=== PATIENT | female | born 1990 | race African-American/Black ===

== ENCOUNTER 2017-04-21 14:00 | Inpatient (IN) | payer MEDICAID ==
[~2017-04-21] VITALS: Ht 167.6 cm; Wt 133.8 kg
--- NOTE | ~2017-04-21 | PN ---
Unit #: [id number] #: [id number] Patient: JANNY SALDIVAR [id number] [facility] [address] [place] [address] [id number] MR#: [id number] NAME: JANNY SALDIVAR ROOM: [facility] Age: 26 Sex: F Admission Date: 04/21/2017 : 1990 Attending Physician: Donnie Remy M.D. Admitting Physician: Donnie Remy M.D. Primary Care Physician: Generic Doctor Not In System [facility] PROGRESS NOTES DATE 04/23/2017 DISCUSSION Janny has decreased detox symptoms today. Her mood is improving with a brighter range of affect. She is alert and fully oriented with no evidence of psychosis, confusion or disorientation. She denies active suicidal ideations today. ASSESSMENT Alcohol dependence. PLAN Continue current treatment plan. Dictated by... Chidi De La Cruz/reno TD: 04/28/2017 00:57 JOB #: [id number] [facility] PROGRESS NOTES Page 1 of 1 X Donnie Remy MD PROGRESS NOTE
--- NOTE | ~2017-04-21 | DS ---
Unit #: [id number] #: [id number] Patient: JANNY SALDIVAR [id number] [place] [address] [id number] MR#: [id number] NAME: JANNY SALDIVAR ROOM: [facility] Age: 26 Sex: F Admission Date: 04/21/2017 : 1990 Discharge Date: 04/24/2017 Attending Physician: Donnie Remy M.D. Primary Care Physician: Generic Doctor Not In System DISCHARGE SUMMARY REASON FOR ADMISSION Janny is a 26-year-old woman, who reports difficulty maintaining sobriety after increasing use of alcohol. She drinks about a fifth of whiskey daily. She was unable to contract for safety and was admitted for stabilization. DIAGNOSTIC STUDIES Laboratory data, please see hospital chart. HOSPITAL COURSE The patient was admitted and placed on the alcohol detox protocol. Her home medications were restarted but she declined initiation of an antidepressant medication. Her withdrawal symptoms were significant for the first forty hours of her hospitalization but gradually improved. She did not show any evidence of disorientation, confusion, or delirium and on the day of discharge, she had a good mood, bright affect, and no further suicidal ideation, intent, or plan. DISCHARGE DIAGNOSES [place] I Alcohol dependence, withdraw, uncomplicated. [place] II No diagnosis. [place] III Hypertension. Asthma. Diabetes. Obesity. [place] IV [place] V INSTRUCTIONS TO PATIENT Follow up with chemical dependence programming, community mental health resources. DISCHARGE MEDICATIONS No prescriptions were provided. The patient will continue on Lopressor 50 mg twice daily for hypertension, hydrochlorothiazide 25 mg daily for hypertension, and Proventil inhaler 1 to 2 puffs every four hours for shortness of breath. CONDITION AT DISCHARGE Fair. PROGNOSIS Unit #: [id number] #: [id number] Patient: JANNY SALDIVAR [id number]. DIET AND ACTIVITY Ad felipe. Dictated by... Donnie Remy M.D. AIDEN/ashley TD: 04/28/2017 10:13 JOB #: [id number] DISCHARGE SUMMARY Page 1 of 1 X Donnie Remy MD X DISCHARGE SUMMARY
--- NOTE | ~2017-04-21 | CO ---
Unit #: [id number] #: [id number] Patient: JANNY SALDIVAR [id number] [facility] [address] [place] [address] [id number] MR#: [id number] NAME: JANNY SALDIVAR ROOM: [facility] Age: 26 Sex: F Admission Date: 04/21/2017 : 1990 Attending Physician: Donnie Remy M.D. Primary Care Physician: Generic Doctor Not In System Consultation Date: 04/22/2017 CONSULTATION REPORT Ordering provider is Dr. Remy. REASON FOR CONSULTATION High blood pressure. SUBJECTIVE The patient reports that she takes 75 mg of metoprolol b.i.d., but has been out of it for several months. This had been controlling her blood pressure well. She also complains of wheezing in all lung wolf due to her asthma and is requesting an inhaler. OBJECTIVE Heart with regular rate and rhythm. Wheezing was noted in all lung wolf. The remainder of her examination is unremarkable. Blood pressure on admission was 172/104. ASSESSMENT 1. High blood pressure. 2. Asthma. PLAN The PA who was on for yesterday had already ordered blood pressure medications. We will continue her on those. I also ordered a Ventolin inhaler for her. We will continue to monitor. Dictated by... Agustin Hoskins/devin TD: 04/22/2017 16:31 JOB #: [id number] Unit #: [id number] #: [id number] Patient: JANNY SALDIVAR CONSULTATION REPORT Page 1 of 1 X SUSHIL ROBERTO APRN CONSULTATION REPORT
--- NOTE | ~2017-04-21 | HP ---
Unit #: [id number] #: [id number] Patient: JANNY SLADIVAR [id number] [place] [address] [id number] MR#: [id number] NAME: JANNY SALDIVAR ROOM: 76 Age: 26 Sex: F Admission Date: 04/21/2017 : 1990 Attending Physician: Donnie Remy M.D. Admitting Physician: Donnie Remy M.D. Primary Care Physician: Generic Doctor Not In System HISTORY AND PHYSICAL HISTORY OF PRESENT ILLNESS The patient is a 26-year-old female admitted to [facility] on 04/21/2017 to detox from alcohol. PAST MEDICAL HISTORY 1. Obesity. 2. Hypertension. 3. Withdrawal seizures. 4. Asthma. PAST SURGICAL HISTORY 1. Arm surgery. 2. Dental. SOCIAL HISTORY She is unemployed. She lives with parents. She smokes 1 pack of cigarettes daily and drinks fifth of whiskey per day. FAMILY MEDICAL HISTORY Noncontributory. ALLERGIES No known drug allergies. CURRENT MEDICATIONS The patient is not on any home medications. REVIEW OF SYSTEMS CONSTITUTIONAL: No fever or chills. HEENT: Denies any sore throat, ear pain or runny nose. CARDIOVASCULAR: Denies chest pain, irregular heart rhythm or palpitations. CHEST: Denies shortness of breath or cough. No hemoptysis. GASTROINTESTINAL: Denies nausea, vomiting, diarrhea or chronic constipation. ENDOCRINE: Denies history of increased thirst or urination. No recent significant weight loss or gain. GENITOURINARY: Denies dysuria, frequency, or hematuria. SKIN: Denies any rashes. HEMATOLOGIC: Denies history of increased bleeding or bruising. MUSCULOSKELETAL: Denies any hot, swollen joints. No generalized muscle pain. NEUROLOGIC: Denies problems with vision or speech. No frequent, severe headaches. No numbness, tingling or weakness in any extremities. Denies Unit #: [id number] #: [id number] Patient: JANNY SALDIVAR loss of bladder or bowel control. PHYSICAL EXAMINATION GENERAL: She is awake, alert, and oriented in no acute distress. VITAL SIGNS: Temperature 98.5, heart rate 124, respirations 18, blood pressure 172/104. HEIGHT: 5 feet 6. WEIGHT: 295 pounds. SKIN: Warm and dry without rash or lesion. HEENT: Normocephalic. TMs not viewed. Oral and nasal passages clear. Conjunctivae clear. PERRLA. EOMs intact. NECK: Supple without lymphadenopathy or thyromegaly. HEART: Regular rate and rhythm without murmur. LUNGS: No wheezing in all lung wolf. ABDOMEN: Soft, nontender. : Not done. EXTREMITIES: No evidence of cyanosis, clubbing or edema. Moves all without focal deficit. NEUROLOGICAL: Grossly within normal limits. Cranial Nerves: II: Visual wolf are intact. III, IV AND : Extraocular movements are intact. Pupils are equal, round and reactive to light. V: Facial sensation is grossly normal. VII: Facial movements and expression are normal. VIII: Auditory acuity grossly intact. IX, X: Uvula is midline. Phonation is normal. XI: Patient shrugs shoulders and turns head normally. XII: Tongue protrudes in the midline. Sensory and Motor Function: Sensory and motor sensation is grossly normal. Motor: moves all extremities well. IMPRESSION 1. Psychiatric admission. 2. Alcohol abuse. 3. Obesity. 4. Hypertension. 5. Withdrawal seizures. 6. Asthma. 7. Nicotine dependence. RECOMMENDATIONS PSYCHIATRIC: Per psychiatrist. MEDICAL: No contraindication to participate in this facility activities. MEDICAL PROGNOSIS Fair. MEDICAL CONDITION Stable. Dictated by... Agustin Hoskins/edita TD: 04/22/2017 16:16 Unit #: [id number] #: [id number] Patient: JANNY SALDIVAR JOB #: [id number] HISTORY AND PHYSICAL Page 1 of 1 X SUSHIL ROBERTO APRN HISTORY AND PHYSICAL
--- NOTE | ~2017-04-21 | CO ---
Unit #: [id number] #: [id number] Patient: JANNY SALDIVAR [id number] [facility] [address] [place] [address] [id number] MR#: [id number] NAME: JANNY SALDIVAR ROOM: [facility] Age: 26 Sex: F Admission Date: 04/21/2017 : 1990 Attending Physician: Donnie Remy M.D. Consultation Date: 04/23/2017 CONSULTATION REPORT Ordering provider is Dr. Remy. REASON FOR CONSULT To follow up on blood pressure. Yesterday, the patient was started on metoprolol and hydrochlorothiazide. She denies any side effects of these medications. Her blood pressure is much better today at 116/79, which is down from 161/93. We will continue to monitor the patient, but blood pressure is now reassuring. Dictated by... Agustin Hoskins/devin TD: 04/23/2017 21:07 JOB #: [id number] CONSULTATION REPORT Page 1 of 1 X SUSHIL ROBERTO APRN CONSULTATION REPORT
[2017-04-22 11:45] LABS: BASOPHIL% 0.4 % (0-2.5); EOSINOPHIL# 0.1 X10e3 (0-0.7); EOSINOPHIL% 0.7 % (0.0-7.0); HEMATOCRIT 37.6 % (35.0-45.0); HEMOGLOBIN 12.5 gm/dL (12.0-16.0); LYMPHOCYTE# 2.2 X10e3 (1.0-3.5); LYMPHOCYTE% 20.5 % (17.0-45.0); MEAN CORPUSCULAR HEMOGLOBIN 29.9 PG (28-34); MEAN CORPUSCULAR HGB CONC 33.2 g/dL (30-36); MEAN PLATELET VOLUME 9.4 FL (6.5-11.5); MONOCYTE# 0.6 X10e3 (0-1.0); MONOCYTE% 5.3 % (3.0-12.0); NEUTROPHIL# 7.9 X10e3 (1.5-7.1); NEUTROPHIL% 73.1 % (40-75); PLATELET COUNT 263 X10e3 (140-420); RED BLOOD COUNT 4.18 X10e (3.90-5.30); RED CELL DISTRIBUTION WIDTH 19.2 % (11.0-15.5); WHITE BLOOD COUNT 10.8 X10e3 (4.0-10.5)
[2017-04-22 11:49] LABS: DIFF IND NO
[2017-04-22 12:14] LABS: ALBUMIN SERUM 4.2 g/dL (3.5-5.0); BILIRUBIN,TOTAL 1.6 mg/dL (0.2-2.0); BUN/CREATININE RATIO 11.25; CALCIUM SERUM 9.5 mg/dL (8.4-10.2); CREATININE SERUM 0.8 mg/dL (0.6-1.4); GLOM FILT RATE Estimated 117.2 mL/min (>60); PROTEIN TOTAL SERUM 7.5 g/dL (6.0-8.3)
== END 2017-04-24 13:50 | disposition home or self-care (01) | DRG 897 ==
LOC: P1E 16:35
PROVIDERS: Psychiatry & Neurology Psychiatry
PROC: HZ2ZZZZ Detoxification Services for Substance Abuse Treatment (ICD-10-PCS; principal; 2017-04-22)
DX: F10.20 Alcohol dependence, uncomplicated (principal); I10 Essential (primary) hypertension; E66.9 Obesity, unspecified; J45.909 Unspecified asthma, uncomplicated; F17.210 Nicotine dependence, cigarettes, uncomplicated
CPT/HCPCS: 80053; 84703; 85025